=== PATIENT | female | born 1945 | race African-American/Black ===

== ENCOUNTER 2023-09-11 22:48 | Inpatient (IN) | payer MEDICARE, OTHER ==
[~2023-09-11] VITALS: Ht 162.6 cm; Wt 63.5 kg
[~2023-09-11 22:48] MED LIST: LORA-258 PO
[2023-09-11 23:08] VITALS: O2SAT 100
[2023-09-11 23:32] LABS: BASOPHILS # (AUTO) 0.1 K/uL (0.0-0.2); BASOPHILS % (AUTO) 1.2 % (0.0-2.0); EOSINOPHILS # (AUTO) 0.3 K/uL (0.0-0.7); EOSINOPHILS % (AUTO) 5.3 % (0.0-6.0); HEMATOCRIT 25 % (33-45); HEMOGLOBIN 8.2 g/dL (11.5-14.8); LYMPHOCYTES # (AUTO) 1.6 K/uL (0.8-4.8); LYMPHOCYTES % (AUTO) 25.6 % (20.0-44.0); MEAN CORPUSCULAR HEMOGLOBIN 27 PG (26.0-33.0); MEAN CORPUSCULAR HGB CONC 32 g/dl (31.0-36.0); MEAN CORPUSCULAR VOLUME 84 fL (82-100); MONOCYTES # (AUTO) 0.8 K/uL (0.1-1.30); NEUTROPHILS # (AUTO) 3.4 K/uL (1.8-8.9); NEUTROPHILS % (AUTO) 54.9 % (43.0-81.0); PLATELET COUNT (AUTO) 444 K/uL (150-450); RED BLOOD CELL COUNT(AUTO) 3.04 MIL/uL (4.0-5.2); RED CELL DISTRIBUTION WIDTH 19.3 % (11.5-15.0); WHITE BLOOD COUNT (AUTO) 6.2 K/uL (4.3-11.0)
[2023-09-11] MEDS: diphenhydrAMINE HCL 50 MG/ML VIAL IM ONE (23:35)
[2023-09-11] MEDS: HALOPERIDOL LACTATE INJ 5 MG/ML VIAL IM ONE (23:35)
[2023-09-11 23:43] LABS: CALCIUM, SERUM 9.6 mg/dL (8.5-10.1); CARBON DIOXIDE 27 mmol/L (21-32); CHLORIDE 104 mmol/L (98-107); CREATININE 2.9 mg/dL (0.6-1.3); GLUCOSE 111 mg/dL (74-106); POTASSIUM 3.9 mmol/L (3.5-5.1); SODIUM SERUM 142 mmol/L (136-145); UREA NITROGEN, BLOOD 37 mg/dL (7-18)
[2023-09-12 00:03] LABS: ALANINE AMINOTRANSFERASE 23 U/L (12-78); ALBUMIN 3.4 g/dL (3.4-5.0); ALCOHOL, BLOOD < 3 mg/dL (0-10); ALKALINE PHOSPHATASE 120 U/L (46-116); ASPARTATE AMINOTRANSFERASE 19 U/L (15-37); BILIRUBIN,DIRECT 0.1 mg/dL (0.0-0.2); BILIRUBIN,TOTAL 0.3 mg/dL (0.2-1.0); TOTAL PROTEIN, SERUM 7.9 g/dL (6.4-8.2)
[2023-09-12 00:05] LABS: ACETAMINOPHEN <10 ug/ml (10-30); SALICYLATE 1.1 mg/dL (2.8-20.0)
[2023-09-12 00:05] LABS: APPEARANCE,URINE CLEAR (CLEAR); BILIRUBIN,URINE NEGATIVE (NEGATIVE); BLOOD, URINE NEGATIVE Ery/uL (NEGATIVE); COLOR,URINE YELLOW (YELLOW); KETONES,URINE NEGATIVE (NEGATIVE); LEUKOCYTE ESTERASE ,URINE NEGATIVE (NEGATIVE); NITRITE, URINE NEGATIVE (NEGATIVE); PROTEIN,URINE 1+ mg/dl (NEGATIVE); UGLUCOSE NEGATIVE (NEGATIVE); UROBILINOGEN,URINE 0.2 EU/dL (0.2)
[2023-09-12 00:11] LABS: ADD URINE CULTURE NO; BACTERIA,URINE None seen /HPF (None Seen); RBC,URINE 0-2 /HPF (0-2); SQUAMOUS EPITHELIAL CELL,UR Rare /HPF (None Seen); WBC,URINE 0-2 /HPF (0-3)
[2023-09-12 00:31] LABS: AMPHETAMINE, URINE NEGATIVE (NEGATIVE); BARBITURATE, URINE NEGATIVE (NEGATIVE); BENZODIAZEPINE, URINE NEGATIVE (NEGATIVE); CANNABINOID, URINE NEGATIVE (NEGATIVE); COCCAINE, URINE NEGATIVE (NEGATIVE); OPIATE, URINE NEGATIVE (NEGATIVE); PHENCYCLIDINE SCREEN,URINE NEGATIVE (NEGATIVE)
[2023-09-12] MEDS ORDERED: DIGO125T PO (01:56)
[2023-09-12] MEDS ORDERED: ATOR40TA PO (01:56)
[2023-09-12] MEDS ORDERED: ACET325T53 PO (01:56)
[2023-09-12] MEDS ORDERED: ASPI-1169 PO (01:56)
[2023-09-12] MEDS ORDERED: MULT-447 PO (01:56)
[2023-09-12] MEDS ORDERED: ASCO500C6 PO (01:56)
[2023-09-12] MEDS ORDERED: LOSA25TA27 PO (01:56)
[2023-09-12] MEDS ORDERED: ONDA4TAB11 PO (01:56)
[2023-09-12] MEDS ORDERED: FURO20TA4 PO (01:56)
[2023-09-12] MEDS ORDERED: TRIA1CAP20 PO (01:56)
[2023-09-12] MEDS ORDERED: PANT40TA49 PO (01:56)
[2023-09-12] MEDS ORDERED: IPRA3AMP23 IH (01:56)
[2023-09-12] MEDS ORDERED: FLUT1DIS3 INH (01:56)
[2023-09-12] MEDS ORDERED: SILD20TA PO (01:56)
[2023-09-12] MEDS ORDERED: NIFE30TA2 PO (01:56)
[2023-09-12] MEDS ORDERED: POTA20TA83 PO (01:56)
[2023-09-12] MEDS ORDERED: ACETAMINOPHEN 325 MG TABLET PO PRN ×2 (02:30→03:30)
[2023-09-12] MEDS ORDERED: MAG HYDROX/AL HYDROX/SIMETH 30 ML UDC PO PRN (02:30)
[2023-09-12] MEDS ORDERED: TEMAZEPAM 7.5 MG CAPSULE PO PRN (02:30)
[2023-09-12] MEDS ORDERED: MAGNESIUM HYDROXIDE 30 ML UDC PO PRN (02:30)
[2023-09-12] MEDS: BLOOD SUGAR DIAGNOSTIC 1 EACH STRIP IN ONE (02:58)
[2023-09-12] MEDS ORDERED: ONDANSETRON 4 MG TAB.RAPDIS PO PRN (03:30)
[2023-09-12 08:00] VITALS: BP 132/66; TEMP 98; O2SAT 98
[2023-09-12] MEDS: IPRATROPIUM NEB FS 0.5 MG/2.5 ML AMPUL.NEB IH SCH (09:00)
[2023-09-12] MEDS: LOSARTAN POTASSIUM 25 MG TABLET PO SCH (09:00)
[2023-09-12] MEDS: ASCORBIC ACID 500 MG TABLET PO SCH (09:00)
[2023-09-12] MEDS: PANTOPRAZOLE 40 MG TABLET.DR PO SCH (09:00)
[2023-09-12] MEDS: ATORVASTATIN 40 MG TABLET PO SCH (09:00)
[2023-09-12] MEDS: MULTIVIT W/MINERALS 1 TAB TABLET PO SCH (09:00)
[2023-09-12] MEDS: FUROSEMIDE 20 MG TABLET PO SCH (09:00)
[2023-09-12] MEDS ORDERED: Medication Not On Formulary EA (Ipratropium/Albuterol Sulfate (Duoneb 2.5-0.5 Mg/3 Ml So IH SCH (09:00)
[2023-09-12] MEDS: NIFEdipine XL (30MG) 30 MG TAB PO SCH (09:00)
[2023-09-12] MEDS: TRIAMTERENE/HYDROCHLOROTHIAZID (37.5/25MG) 1 UDCAP PO SCH (09:00)
[2023-09-12] MEDS: FLUTICASONE/VILANTEROL 1 EACH BLST.W.DEV IH SCH (09:00)
[2023-09-12] MEDS: ASPIRIN 81 MG TAB.CHEW PO SCH (09:00)
[2023-09-12] MEDS: ALBUTEROL FS 2.5 MG/0.5 ML VIAL.NEB NEB SCH (09:00)
[2023-09-12] MEDS: POTASSIUM CHLORIDE 20 MEQ TAB.PRT.SR PO SCH (09:00)
[2023-09-12] MEDS: DIGOXIN 0.125 MG TABLET PO SCH (09:00)
[2023-09-12] MEDS: SILDENAFIL CITRATE 20 MG TABLET PO SCH (09:00)
[2023-09-12] MEDS ORDERED: CHOL100062 PO (09:42)
[2023-09-12] MEDS ORDERED: ARIP2TAB3 PO (09:42)
[2023-09-12] MEDS ORDERED: AMIN30LI25 PO (09:42)
[2023-09-12] MEDS ORDERED: NUTR237L18 PO (09:42)
[2023-09-12 16:39] VITALS: BP 185/98; TEMP 98.6; O2SAT 95
[2023-09-12 20:00] VITALS: BP 128/74; TEMP 98.3; O2SAT 99
[2023-09-12] MEDS: ARIPIPRAZOLE 2 MG TABLET PO SCH (21:27)
[2023-09-13 08:00] VITALS: BP 190/97; TEMP 97.9; O2SAT 99
[2023-09-13 16:00] VITALS: BP 191/89; TEMP 98; O2SAT 100
[2023-09-13] MEDS: SILDENAFIL CITRATE 20 MG TABLET PO SCH (17:00)
[2023-09-13] MEDS: CLONIDINE HCL 0.1MG/24H PTWK 1 EA PATCH TD SCH (17:02)
[2023-09-13] MEDS ORDERED: NITROGLYCERIN 30 GM TUBE TP SCH (18:00)
[2023-09-13 20:00] VITALS: BP 137/82; TEMP 98; O2SAT 99
[2023-09-13] MEDS ORDERED: ALBUTEROL FS 2.5 MG/0.5 ML VIAL.NEB NEB PRN (23:30)
[2023-09-13] MEDS ORDERED: IPRATROPIUM NEB FS 0.5 MG/2.5 ML AMPUL.NEB IH PRN (23:30)
[2023-09-14 10:47] LABS: BASOPHILS # (AUTO) 0.1 K/uL (0.0-0.2); BASOPHILS % (AUTO) 1.1 % (0.0-2.0); EOSINOPHILS # (AUTO) 0.2 K/uL (0.0-0.7); EOSINOPHILS % (AUTO) 2.5 % (0.0-6.0); HEMATOCRIT 27 % (33-45); HEMOGLOBIN 8.9 g/dL (11.5-14.8); LYMPHOCYTES # (AUTO) 1.3 K/uL (0.8-4.8); LYMPHOCYTES % (AUTO) 16.2 % (20.0-44.0); MEAN CORPUSCULAR HEMOGLOBIN 27 PG (26.0-33.0); MEAN CORPUSCULAR HGB CONC 33 g/dl (31.0-36.0); MEAN CORPUSCULAR VOLUME 83 fL (82-100); MONOCYTES # (AUTO) 0.8 K/uL (0.1-1.30); MONOCYTES % (AUTO) 9.8 % (2.0-12.0); NEUTROPHILS # (AUTO) 5.7 K/uL (1.8-8.9); NEUTROPHILS % (AUTO) 70.4 % (43.0-81.0); PLATELET COUNT (AUTO) 456 K/uL (150-450); RED BLOOD CELL COUNT(AUTO) 3.27 MIL/uL (4.0-5.2); RED CELL DISTRIBUTION WIDTH 18.8 % (11.5-15.0); WHITE BLOOD COUNT (AUTO) 8.1 K/uL (4.3-11.0)
[2023-09-14 11:06] LABS: ALANINE AMINOTRANSFERASE 20 U/L (12-78); ALBUMIN 3.3 g/dL (3.4-5.0); ALKALINE PHOSPHATASE 120 U/L (46-116); ASPARTATE AMINOTRANSFERASE 23 U/L (15-37); BILIRUBIN,TOTAL 0.3 mg/dL (0.2-1.0); CALCIUM, SERUM 9.5 mg/dL (8.5-10.1); CARBON DIOXIDE 26 mmol/L (21-32); CHLORIDE 106 mmol/L (98-107); GLUCOSE 90 mg/dL (74-106); MAGNESIUM 2.7 mg/dL (1.8-2.4); PHOSPHORUS 3.3 mg/dL (2.5-4.9); POTASSIUM 3.7 mmol/L (3.5-5.1); SODIUM SERUM 143 mmol/L (136-145); UREA NITROGEN, BLOOD 38 mg/dL (7-18)
[2023-09-14 15:31] LABS: CHOLESTEROL 183 mg/dL (<200); CREATINE KINASE, TOTAL 288 U/L (26-192); HDL CHOLESTEROL 87 mg/dL (40-60); TRIGLYCERIDES 65 mg/dL (30-150)
[2023-09-14 16:22] LABS: LDL 75 mg/dL (0-99)
[2023-09-14 16:39] VITALS: BP 165/85; TEMP 98; O2SAT 95
[2023-09-14 20:00] VITALS: BP 135/80; TEMP 98; O2SAT 98
[2023-09-15] MEDS: ARIPIPRAZOLE 2 MG TABLET PO SCH (10:39)
[2023-09-15 16:00] VITALS: BP 120/75; TEMP 98; O2SAT 100
[2023-09-15 21:23] VITALS: TEMP 98; O2SAT 100
[2023-09-15] MEDS: LORAZEPAM 0.5 MG TABLET PO PRN (21:27)
[2023-09-16 07:07] LABS: PTH, INTACT 108 pg/mL (15-65)
[2023-09-16 08:00] VITALS: BP 150/80; TEMP 98.1; O2SAT 96
[2023-09-16 16:00] VITALS: BP 160/82; TEMP 97.9; O2SAT 98
[2023-09-16 20:26] VITALS: BP 138/74; TEMP 97.9; O2SAT 98
[2023-09-17 08:00] VITALS: BP 130/67; TEMP 98.2; O2SAT 98
[2023-09-17 09:12] LABS: *SPE A/G RATIO 0.9 (0.7-1.7); *SPE ALBUMIN 3.5 g/dL (2.9-4.4); *SPE ALPHA-1-GLOBULIN 0.3 g/dL (0.0-0.4); *SPE ALPHA-2-GLOBULIN 0.6 g/dL (0.4-1.0); *SPE BETA GLOBULIN 1.3 g/dL (0.7-1.3); *SPE GLOBULIN, TOTAL 3.9 g/dL (2.2-3.9); *SPE M-SPIKE Not Observed g/dL (Not Observed); *SPE PROTEIN TOTAL 7.4 g/dL (6.0-8.5); *SPEGAMMA GLOBULIN 1.7 g/dL (0.4-1.8)
[2023-09-17] MEDS: ARIPIPRAZOLE 2 MG TABLET PO SCH (12:20)
[2023-09-17 16:03] VITALS: BP 120/80; TEMP 98.2; O2SAT 93
[2023-09-17 20:57] VITALS: BP 142/89; TEMP 98.3; O2SAT 98
[2023-09-18 08:00] VITALS: BP 140/82; TEMP 97.9; O2SAT 98
[2023-09-18] MEDS: OLANZAPINE 10 MG VIAL IM PRN (09:45)
[2023-09-18] MEDS: LORAZEPAM INJ 2 MG/ML VIAL IM ONE (11:26)
[2023-09-18 16:00] VITALS: BP 138/76; TEMP 98.4; O2SAT 97
[2023-09-18 20:50] VITALS: BP 135/72; TEMP 98.1; O2SAT 97
[2023-09-19 08:00] VITALS: BP 160/90; TEMP 97.3; O2SAT 98
[2023-09-19 15:30] LABS: BASOPHILS # (AUTO) 0.1 K/uL (0.0-0.2); BASOPHILS % (AUTO) 0.9 % (0.0-2.0); EOSINOPHILS # (AUTO) 0.4 K/uL (0.0-0.7); EOSINOPHILS % (AUTO) 5.7 % (0.0-6.0); HEMATOCRIT 24 % (33-45); LYMPHOCYTES # (AUTO) 1.5 K/uL (0.8-4.8); LYMPHOCYTES % (AUTO) 21.6 % (20.0-44.0); MEAN CORPUSCULAR HEMOGLOBIN 27 PG (26.0-33.0); MEAN CORPUSCULAR HGB CONC 33 g/dl (31.0-36.0); MEAN CORPUSCULAR VOLUME 81 fL (82-100); MONOCYTES # (AUTO) 0.7 K/uL (0.1-1.30); MONOCYTES % (AUTO) 9.6 % (2.0-12.0); NEUTROPHILS # (AUTO) 4.3 K/uL (1.8-8.9); NEUTROPHILS % (AUTO) 62.2 % (43.0-81.0); PLATELET COUNT (AUTO) 386 K/uL (150-450); RED BLOOD CELL COUNT(AUTO) 2.99 MIL/uL (4.0-5.2); RED CELL DISTRIBUTION WIDTH 19.5 % (11.5-15.0); WHITE BLOOD COUNT (AUTO) 6.9 K/uL (4.3-11.0)
[2023-09-19 16:34] LABS: ALANINE AMINOTRANSFERASE 21 U/L (12-78); ALBUMIN 2.9 g/dL (3.4-5.0); ALKALINE PHOSPHATASE 107 U/L (46-116); ASPARTATE AMINOTRANSFERASE 21 U/L (15-37); BILIRUBIN,TOTAL 0.3 mg/dL (0.2-1.0); CARBON DIOXIDE 26 mmol/L (21-32); CHLORIDE 102 mmol/L (98-107); CREATININE 1.6 mg/dL (0.6-1.3); GLUCOSE 105 mg/dL (74-106); MAGNESIUM 2.5 mg/dL (1.8-2.4); PHOSPHORUS 4.2 mg/dL (2.5-4.9); POTASSIUM 3.6 mmol/L (3.5-5.1); SODIUM SERUM 139 mmol/L (136-145); TOTAL PROTEIN, SERUM 7.4 g/dL (6.4-8.2); UREA NITROGEN, BLOOD 35 mg/dL (7-18)
[2023-09-19 20:00] VITALS: BP 135/78; TEMP 98.2; O2SAT 98
[2023-09-19] MEDS: ARIPIPRAZOLE 2 MG TABLET PO SCH (21:08)
[2023-09-20 20:00] VITALS: BP 137/83; TEMP 98; O2SAT 98
[2023-09-21 08:00] VITALS: BP 140/80; TEMP 98; O2SAT 95
[2023-09-21 16:00] VITALS: BP 150/80; TEMP 98.9; O2SAT 96
[2023-09-21 20:00] VITALS: BP 137/76; TEMP 97.8; O2SAT 98
[2023-09-22] MEDS: ARIPIPRAZOLE 5 MG TABLET PO SCH (13:00)
[2023-09-22] MEDS: DIVALPROEX SODIUM 125 MG TABLET.DR PO SCH (13:30)
[2023-09-22 20:37] VITALS: BP 139/73; TEMP 97.5; O2SAT 98
[2023-09-23 16:00] VITALS: BP 143/70; TEMP 98.1; O2SAT 99
[2023-09-23 21:31] VITALS: BP 151/86; TEMP 97.5; O2SAT 100
[2023-09-24 07:05] LABS: CALCIUM, SERUM 9.5 mg/dL (8.5-10.1); CARBON DIOXIDE 25 mmol/L (21-32); CHLORIDE 104 mmol/L (98-107); CREATININE 1.5 mg/dL (0.6-1.3); GLUCOSE 105 mg/dL (74-106); POTASSIUM 4.2 mmol/L (3.5-5.1); SODIUM SERUM 139 mmol/L (136-145); UREA NITROGEN, BLOOD 25 mg/dL (7-18)
[2023-09-24 08:00] VITALS: BP 159/91; TEMP 98.7; O2SAT 98
[2023-09-24 16:00] VITALS: BP 149/84; TEMP 98.7; O2SAT 100
[2023-09-24 20:34] VITALS: BP 145/89; TEMP 97.8; O2SAT 99
[2023-09-25 08:00] VITALS: BP 141/71; TEMP 98.7; O2SAT 100
[2023-09-25 16:00] VITALS: BP 131/62; TEMP 98.7; O2SAT 97
[2023-09-25 22:00] VITALS: BP 143/85; TEMP 98.2; O2SAT 97
[2023-09-26 08:00] VITALS: BP 122/100; TEMP 98; O2SAT 95
[2023-09-26 08:36] VITALS: BP 148/81
== END 2023-09-26 13:50 | DRG 885 ==
LOC: ER 23:07 → GPS 09-12 01:19
PROVIDERS: ADMIT Psychiatry & Neurology Psychosomatic Medicine; ATTEND Internal Medicine
DX: F20.9 Schizophrenia, unspecified (principal); N18.30 Chronic kidney disease, stage 3 unspecified; I13.0 Hypertensive heart and chronic kidney disease with heart failure and stage 1 through stage 4 chronic kidney disease, or unspecified chronic kidney disease; F03.918 Unspecified dementia, unspecified severity, with other behavioral disturbance; F03.92 Unspecified dementia, unspecified severity, with psychotic disturbance; F03.911 Unspecified dementia, unspecified severity, with agitation; R45.851 Suicidal ideations; D68.59 Other primary thrombophilia; F29 Unspecified psychosis not due to a substance or known physiological condition; K21.9 Gastro-esophageal reflux disease without esophagitis; I48.91 Unspecified atrial fibrillation; I50.9 Heart failure, unspecified; Z87.09 Personal history of other diseases of the respiratory system; M89.8X9 Other specified disorders of bone, unspecified site; J44.9 Chronic obstructive pulmonary disease, unspecified; Z79.82 Long term (current) use of aspirin; Z79.51 Long term (current) use of inhaled steroids; Z79.899 Other long term (current) drug therapy; I48.0 Paroxysmal atrial fibrillation; E78.5 Hyperlipidemia, unspecified; E86.0 Dehydration; D63.8 Anemia in other chronic diseases classified elsewhere; Z91.199 Patient's noncompliance with other medical treatment and regimen due to unspecified reason; I27.20 Pulmonary hypertension, unspecified
CPT/HCPCS: 36415; 80048-TC; 80053-TC; 80061-TC; 80076-TC; 81001; 82550-TC; 82553; 82962-TC; 83735-TC; 83970; 84100-TC; 84155; 84165; 85025-TC; 87081-TC; 97112-TC; 97116-TC; 97530-TC; G0480; J1200; J1630; J2060; J3490

== ENCOUNTER 2023-10-03 20:58 | Inpatient (IN) | payer MEDICARE, MEDICAID ==
[~2023-10-03] VITALS: Ht 165.1 cm; Wt 60.8 kg
[~2023-10-03 20:58] MED LIST changes: +ACET325T53 PO; +AMIN30LI25 PO; +ARIP2TAB3 PO; +ASCO500C6 PO; +ASPI-1169 PO; +ATOR40TA PO; +CHOL100062 PO; +DIGO125T PO; +FLUT1DIS3 INH; +FURO20TA4 PO; +IPRA3AMP23 IH; +LOSA25TA27 PO; +MULT-447 PO; +NIFE30TA2 PO; +NUTR237L18 PO; +ONDA4TAB11 PO; +PANT40TA49 PO; +POTA20TA83 PO; +SILD20TA PO; +TEMA7.5C12 PO; +TRIA1CAP20 PO
[2023-10-03] MEDS: IV NS 0.9% 500 ML BAG IV ONE (21:30)
[2023-10-03 22:39] LABS: BASOPHILS # (AUTO) 0.1 K/uL (0.0-0.2); BASOPHILS % (AUTO) 1.1 % (0.0-2.0); EOSINOPHILS # (AUTO) 0.3 K/uL (0.0-0.7); EOSINOPHILS % (AUTO) 4.7 % (0.0-6.0); HEMATOCRIT 21 % (33-45); LYMPHOCYTES # (AUTO) 1.1 K/uL (0.8-4.8); LYMPHOCYTES % (AUTO) 19.1 % (20.0-44.0); MEAN CORPUSCULAR HEMOGLOBIN 26 PG (26.0-33.0); MEAN CORPUSCULAR HGB CONC 32 g/dl (31.0-36.0); MEAN CORPUSCULAR VOLUME 81 fL (82-100); MONOCYTES # (AUTO) 0.6 K/uL (0.1-1.30); MONOCYTES % (AUTO) 10.1 % (2.0-12.0); NEUTROPHILS # (AUTO) 3.9 K/uL (1.8-8.9); PLATELET COUNT (AUTO) 358 K/uL (150-450)
[2023-10-03 22:42] LABS: HEMOGLOBIN 6.8 g/dL (11.5-14.8)
[2023-10-03 22:53] LABS: ALANINE AMINOTRANSFERASE 36 U/L (12-78); ALKALINE PHOSPHATASE 120 U/L (46-116); ASPARTATE AMINOTRANSFERASE 36 U/L (15-37); BILIRUBIN,DIRECT 0.1 mg/dL (0.0-0.2); BILIRUBIN,TOTAL 0.4 mg/dL (0.2-1.0); CALCIUM, SERUM 9.4 mg/dL (8.5-10.1); CARBON DIOXIDE 26 mmol/L (21-32); CHLORIDE 104 mmol/L (98-107); CREATININE 1.6 mg/dL (0.6-1.3); GLUCOSE 100 mg/dL (74-106); LIPASE 39 U/L (16-77); POTASSIUM 3.8 mmol/L (3.5-5.1); SODIUM SERUM 138 mmol/L (136-145); TOTAL PROTEIN, SERUM 7.1 g/dL (6.4-8.2); UREA NITROGEN, BLOOD 18 mg/dL (7-18)
[2023-10-03 22:56] LABS: INR 1.05 (0.91-1.10); PARTIAL THROMBOPLASTIN TIME 23.9 SEC (24.3-34.3); PROTHROMBIN TIME 11.1 SECS (9.2-11.1)
[2023-10-03 23:30] LABS: ANISOCYTOSIS 1+; BASOPHILS % (MANUAL) 0 % (0.0-2.0); EOSINOPHILS % (MANUAL) 5 % (0-4); HYPOCHROMASIA 1+; LYMPHOCYTES % (MANUAL) 21 % (16-48); MONOCYTES % (MANUAL) 8 % (0-11.0); NEUTROPHILS % (MANUAL) 66 (42-76); OVALOCYTES 1+; PLATELET ESTIMATE ADEQUATE
[2023-10-04] VITALS (18 sets, daily range): BP systolic 113–161; BP diastolic 70–94; TEMP 97.7–98.4; O2SAT 92–100
[2023-10-04] MEDS ORDERED: MAGNESIUM HYDROXIDE 30 ML UDC PO PRN
[2023-10-04] MEDS ORDERED: Z GUARD REMEDY 4 OZ OINT TP PRN
[2023-10-04] MEDS ORDERED: ZOLPIDEM TARTRATE 5 MG TABLET PO PRN
[2023-10-04] MEDS ORDERED: MAG HYDROX/AL HYDROX/SIMETH 30 ML UDC PO PRN
[2023-10-04] MEDS ORDERED: ONDANSETRON HCL/PF 4 MG/2 ML VIAL IVP PRN
[2023-10-04] MEDS: LORAZEPAM 0.5 MG TABLET PO PRN (01:41)
[2023-10-04] MEDS: ALBUTEROL FS 2.5 MG/3 ML VIAL.NEB NEB SCH ×2 (07:35→09:00)
[2023-10-04 08:07] LABS: THYROID STIMULATING HORMONE 1.19 uIU/mL (0.358-3.74)
[2023-10-04 08:09] LABS: ALBUMIN 2.6 g/dL (3.4-5.0); BILIRUBIN,DIRECT 0.2 mg/dL (0.0-0.2); BILIRUBIN,TOTAL 0.7 mg/dL (0.2-1.0); CALCIUM, SERUM 8.6 mg/dL (8.5-10.1); CREATININE 1.3 mg/dL (0.6-1.3); MAGNESIUM 2.3 mg/dL (1.8-2.4); PHOSPHORUS 3.3 mg/dL (2.5-4.9); POTASSIUM 3.5 mmol/L (3.5-5.1); TOTAL PROTEIN, SERUM 6.2 g/dL (6.4-8.2)
[2023-10-04 08:17] LABS: BASOPHILS % (AUTO) 0.9 % (0.0-2.0); EOSINOPHILS # (AUTO) 0.3 K/uL (0.0-0.7); EOSINOPHILS % (AUTO) 4.7 % (0.0-6.0); HEMATOCRIT 24 % (33-45); HEMOGLOBIN 7.9 g/dL (11.5-14.8); LYMPHOCYTES % (AUTO) 17.9 % (20.0-44.0); MEAN CORPUSCULAR HEMOGLOBIN 27 PG (26.0-33.0); MEAN CORPUSCULAR HGB CONC 32 g/dl (31.0-36.0); MEAN CORPUSCULAR VOLUME 82 fL (82-100); MONOCYTES # (AUTO) 0.5 K/uL (0.1-1.30); MONOCYTES % (AUTO) 10.1 % (2.0-12.0); NEUTROPHILS # (AUTO) 3.6 K/uL (1.8-8.9); NEUTROPHILS % (AUTO) 66.4 % (43.0-81.0); PLATELET COUNT (AUTO) 347 K/uL (150-450); RED BLOOD CELL COUNT(AUTO) 2.96 MIL/uL (4.0-5.2); RED CELL DISTRIBUTION WIDTH 17.9 % (11.5-15.0); WHITE BLOOD COUNT (AUTO) 5.4 K/uL (4.3-11.0)
[2023-10-04] MEDS ORDERED: CLON1PAT TD (08:23)
[2023-10-04] MEDS ORDERED: FLUT1BLS IH (08:23)
[2023-10-04] MEDS ORDERED: DIVA125C5 PO (08:23)
[2023-10-04] MEDS: PANTOPRAZOLE 40 MG TABLET.DR PO SCH (08:46)
[2023-10-04] MEDS: BUDESONIDE RESPULE INH 0.5 MG/2 ML AMPUL.NEB HHN SCH (09:00)
[2023-10-04] MEDS: IPRATROPIUM NEB FS 0.5 MG/2.5 ML AMPUL.NEB NEB SCH (09:00)
[2023-10-04] MEDS: PROSOURCE / PROSTAT (PYXIS) 30 ML UDC PO SCH ×2 (09:00→09:31)
[2023-10-04] MEDS: SILDENAFIL CITRATE 20 MG TABLET PO SCH (09:27)
[2023-10-04] MEDS: ASPIRIN 81 MG TAB.CHEW PO SCH (09:28)
[2023-10-04] MEDS: NIFEdipine XL (30MG) 30 MG TAB PO SCH (09:28)
[2023-10-04] MEDS: MULTIVIT W/MINERALS 1 TAB TABLET PO SCH (09:28)
[2023-10-04] MEDS: LOSARTAN POTASSIUM 25 MG TABLET PO SCH (09:28)
[2023-10-04] MEDS: CHOLECALCIFEROL 1,000 UNIT TABLET (VIT D3) PO SCH (09:28)
[2023-10-04] MEDS: ASCORBIC ACID 500 MG TABLET PO SCH (09:28)
[2023-10-04] MEDS: FUROSEMIDE 20 MG TABLET PO SCH (09:29)
[2023-10-04] MEDS: POTASSIUM CHLORIDE 20 MEQ TAB.PRT.SR PO SCH (09:29)
[2023-10-04] MEDS: ATORVASTATIN 40 MG TABLET PO SCH (09:29)
[2023-10-04] MEDS: DIGOXIN 0.125 MG TABLET PO SCH (09:29)
[2023-10-04] MEDS: TRIAMTERENE/HYDROCHLOROTHIAZID (37.5/25MG) 1 UDCAP PO SCH (09:34)
[2023-10-04] MEDS ORDERED: LOPERAMIDE HCL (2 MG CAP) 2 MG CAPSULE PO PRN (16:00)
[2023-10-04] MEDS: ARIPIPRAZOLE 2 MG TABLET PO SCH (21:42)
[2023-10-04] MEDS: OLANZAPINE 10 MG VIAL IM PRN (23:49)
[2023-10-05] VITALS (13 sets, daily range): BP systolic 147–157; BP diastolic 68–103; TEMP 97.7–98.1; O2SAT 94–100
[2023-10-05 06:52] LABS: BASOPHILS % (AUTO) 0.5 % (0.0-2.0); EOSINOPHILS # (AUTO) 0.3 K/uL (0.0-0.7); HEMATOCRIT 30 % (33-45); HEMOGLOBIN 9.8 g/dL (11.5-14.8); LYMPHOCYTES # (AUTO) 0.9 K/uL (0.8-4.8); LYMPHOCYTES % (AUTO) 11.6 % (20.0-44.0); MEAN CORPUSCULAR HEMOGLOBIN 27 PG (26.0-33.0); MEAN CORPUSCULAR HGB CONC 33 g/dl (31.0-36.0); MEAN CORPUSCULAR VOLUME 82 fL (82-100); MONOCYTES # (AUTO) 0.7 K/uL (0.1-1.30); NEUTROPHILS # (AUTO) 5.6 K/uL (1.8-8.9); NEUTROPHILS % (AUTO) 74.9 % (43.0-81.0); PLATELET COUNT (AUTO) 422 K/uL (150-450); RED BLOOD CELL COUNT(AUTO) 3.69 MIL/uL (4.0-5.2); RED CELL DISTRIBUTION WIDTH 18.1 % (11.5-15.0); WHITE BLOOD COUNT (AUTO) 7.5 K/uL (4.3-11.0)
[2023-10-05 07:10] LABS: CALCIUM, SERUM 9.2 mg/dL (8.5-10.1); CARBON DIOXIDE 26 mmol/L (21-32); CHLORIDE 104 mmol/L (98-107); CREATININE 1.4 mg/dL (0.6-1.3); GLUCOSE 102 mg/dL (74-106); POTASSIUM 3.3 mmol/L (3.5-5.1); SODIUM SERUM 139 mmol/L (136-145); UREA NITROGEN, BLOOD 19 mg/dL (7-18)
[2023-10-05] MEDS: DIVALPROEX SODIUM 125 MG CAP.SPRINK PO SCH (09:12)
[2023-10-05] MEDS: ARIPIPRAZOLE 2 MG TABLET PO SCH (09:14)
[2023-10-05 10:34] LABS: IRON, SERUM 16 ug/dl (50-175); TOTAL IRON BINDING CAPACITY 386 ug/dl (250-450)
[2023-10-05] MEDS: POTASSIUM CHLORIDE 20 MEQ TAB.PRT.SR PO ONE (10:45)
[2023-10-05 14:52] LABS: OCCULT BLOOD STOOL NEGATIVE (NEGATIVE)
[2023-10-05] MEDS: ACETAMINOPHEN 325 MG TABLET PO PRN (15:54)
[2023-10-05] MEDS: IPRATROPIUM NEB FS 0.5 MG/2.5 ML AMPUL.NEB NEB SCH (20:07)
[2023-10-05] MEDS: ALBUTEROL FS 2.5 MG/3 ML VIAL.NEB NEB SCH (20:07)
[2023-10-06] VITALS (8 sets, daily range): BP systolic 117–152; BP diastolic 64–103; TEMP 97.5–98.2; O2SAT 96–100
[2023-10-06 06:52] LABS: BASOPHILS # (AUTO) 0.1 K/uL (0.0-0.2); BASOPHILS % (AUTO) 0.9 % (0.0-2.0); EOSINOPHILS # (AUTO) 0.4 K/uL (0.0-0.7); EOSINOPHILS % (AUTO) 5.8 % (0.0-6.0); HEMATOCRIT 28 % (33-45); HEMOGLOBIN 9.1 g/dL (11.5-14.8); LYMPHOCYTES # (AUTO) 1.1 K/uL (0.8-4.8); LYMPHOCYTES % (AUTO) 15.4 % (20.0-44.0); MEAN CORPUSCULAR HEMOGLOBIN 27 PG (26.0-33.0); MEAN CORPUSCULAR HGB CONC 33 g/dl (31.0-36.0); MEAN CORPUSCULAR VOLUME 82 fL (82-100); MONOCYTES # (AUTO) 0.7 K/uL (0.1-1.30); MONOCYTES % (AUTO) 10.6 % (2.0-12.0); NEUTROPHILS # (AUTO) 4.7 K/uL (1.8-8.9); NEUTROPHILS % (AUTO) 67.3 % (43.0-81.0); PLATELET COUNT (AUTO) 418 K/uL (150-450); RED BLOOD CELL COUNT(AUTO) 3.37 MIL/uL (4.0-5.2); RED CELL DISTRIBUTION WIDTH 18.3 % (11.5-15.0)
[2023-10-06 07:01] LABS: ALANINE AMINOTRANSFERASE 30 U/L (12-78); ALKALINE PHOSPHATASE 113 U/L (46-116); ASPARTATE AMINOTRANSFERASE 15 U/L (15-37); BILIRUBIN,TOTAL 0.3 mg/dL (0.2-1.0); CALCIUM, SERUM 9.4 mg/dL (8.5-10.1); CARBON DIOXIDE 25 mmol/L (21-32); CHLORIDE 106 mmol/L (98-107); CREATININE 1.4 mg/dL (0.6-1.3); GLUCOSE 93 mg/dL (74-106); MAGNESIUM 2.4 mg/dL (1.8-2.4); PHOSPHORUS 3.4 mg/dL (2.5-4.9); POTASSIUM 4.7 mmol/L (3.5-5.1); SODIUM SERUM 143 mmol/L (136-145); TOTAL PROTEIN, SERUM 7.7 g/dL (6.4-8.2); UREA NITROGEN, BLOOD 22 mg/dL (7-18)
[2023-10-06 07:51] LABS: CREATINE KINASE, TOTAL 70 U/L (26-192)
[2023-10-06 08:03] LABS: ALBUMIN 3.2 g/dL (3.4-5.0)
[2023-10-06 18:46] LABS: CREATININE, URINE 88.1 MG/DL (30.0-125.0)
[2023-10-06 18:59] LABS: APPEARANCE,URINE CLEAR (CLEAR); BILIRUBIN,URINE NEGATIVE (NEGATIVE); BLOOD, URINE NEGATIVE Ery/uL (NEGATIVE); COLOR,URINE YELLOW (YELLOW); KETONES,URINE NEGATIVE (NEGATIVE); LEUKOCYTE ESTERASE ,URINE 1+ (NEGATIVE); NITRITE, URINE NEGATIVE (NEGATIVE); PROTEIN,URINE TRACE mg/dl (NEGATIVE); UGLUCOSE NEGATIVE (NEGATIVE); UROBILINOGEN,URINE 0.2 EU/dL (0.2)
[2023-10-06] MEDS ORDERED: LORAZEPAM 4 MG/ML VIAL IM ONE (19:00)
[2023-10-06] MEDS ORDERED: LORAZEPAM INJ 2 MG/ML VIAL IM ONE (19:00)
[2023-10-06 19:01] LABS: EOSINOPHIL,URINE RARE
[2023-10-06 19:05] LABS: ADD URINE CULTURE YES; BACTERIA,URINE 1+ /HPF (None Seen); RBC,URINE 0-2 /HPF (0-2)
[2023-10-07] MEDS ORDERED: LOSARTAN POTASSIUM 25 MG TABLET PO SCH (09:00)
[2023-10-07 09:10] LABS: PTH, INTACT 78 pg/mL (15-65)
[2023-10-09 04:09] LABS: *SPE A/G RATIO 0.9 (0.7-1.7); *SPE ALBUMIN 3.3 g/dL (2.9-4.4); *SPE ALPHA-1-GLOBULIN 0.3 g/dL (0.0-0.4); *SPE ALPHA-2-GLOBULIN 0.6 g/dL (0.4-1.0); *SPE BETA GLOBULIN 1.2 g/dL (0.7-1.3); *SPE GLOBULIN, TOTAL 3.6 g/dL (2.2-3.9); *SPE M-SPIKE Not Observed g/dL (Not Observed); *SPE PROTEIN TOTAL 6.9 g/dL (6.0-8.5); *SPEGAMMA GLOBULIN 1.5 g/dL (0.4-1.8)
== END 2023-10-06 18:59 | DRG 811 ==
LOC: ER 21:00 → TELE 10-04 00:12
PROVIDERS: ADMIT Nurse Practitioner Family; ATTEND Internal Medicine
PROC: 30233N1 Transfusion of Nonautologous Red Blood Cells into Peripheral Vein, Percutaneous Approach (ICD-10-PCS; principal; 2023-10-04)
DX: D64.9 Anemia, unspecified (principal); I21.A1 Myocardial infarction type 2; K92.2 Gastrointestinal hemorrhage, unspecified; N17.9 Acute kidney failure, unspecified; E44.0 Moderate protein-calorie malnutrition; F03.93 Unspecified dementia, unspecified severity, with mood disturbance; F03.918 Unspecified dementia, unspecified severity, with other behavioral disturbance; K44.9 Diaphragmatic hernia without obstruction or gangrene; I50.9 Heart failure, unspecified; I11.0 Hypertensive heart disease with heart failure; I48.91 Unspecified atrial fibrillation; Z87.19 Personal history of other diseases of the digestive system; K21.9 Gastro-esophageal reflux disease without esophagitis; Z79.82 Long term (current) use of aspirin; Z79.51 Long term (current) use of inhaled steroids; Z79.899 Other long term (current) drug therapy; E88.09 Other disorders of plasma-protein metabolism, not elsewhere classified; I25.10 Atherosclerotic heart disease of native coronary artery without angina pectoris; J44.9 Chronic obstructive pulmonary disease, unspecified; M19.90 Unspecified osteoarthritis, unspecified site; E78.5 Hyperlipidemia, unspecified; E87.6 Hypokalemia; F29 Unspecified psychosis not due to a substance or known physiological condition; N20.0 Calculus of kidney; R22.1 Localized swelling, mass and lump, neck
CPT/HCPCS: 36415; 71045-TC; 80048-TC; 80053-TC; 80076-TC; 80164-TC; 81001; 82272-TC; 82550-TC; 82570-TC; 83540-TC; 83690-TC; 83735-TC; 83880; 83970; 84100-TC; 84155; 84165; 84300-TC; 84443-TC; 84484-TC; 85025-TC; 85730-TC; 86850-TC; 87086-TC; 93307-TC; 94760-TC; 94761-TC; 94762-TC; 94799-TC; G0378; J2060; J3490; J7040; P9016